=== PATIENT | female | born 1960 ===

== ENCOUNTER 2019-02-18 04:47 | Emergency (ER) | payer OTHER ==
[2019-02-18] MEDS ORDERED: OXYcodone/APAP 5/325MG TABLET PO ONE (05:30)
[2019-02-18] MEDS ORDERED: KETOROLAC 30 MG/1 ML ONE (06:00)
[2019-02-18] MEDS ORDERED: KETOROLAC 30 MG/1 ML IM ONE (06:00)
[2019-02-18 06:07] LABS: MICROSCOPIC NOT IND
[2019-02-18 06:11] LABS: CULTURE INDICATED? NO
--- NOTE | 2019-02-18 06:54 | NUR ---
Report received assumed patient care. Patient resting in bed watching tv reports pain improved and is 2/10. NAD noted. Lab at bedside.
[2019-02-18 07:06] LABS: BASOPHILS # (AUTO) 0.09 x10^3/uL (0-0.1); BASOPHILS % (AUTO) 1 % (0-1); EOSINOPHILS # (AUTO) 0.37 x10^3/uL (0-0.4); EOSINOPHILS % (AUTO) 4 % (1-7); LYMPHOCYTES # (AUTO) 2.32 x10^3/uL (1-3.4); LYMPHOCYTES % (AUTO) 25 % (22-44); MD NO; MEAN CORPUSCULAR HEMOGLOBIN 30.4 pg (27.0-34.8); MEAN CORPUSCULAR VOLUME 92.1 fL (80-100); MEAN PLATELET VOLUME 7.8 fL (7.4-10.4); MONOCYTES # (AUTO) 0.64 x10^3/uL (0.2-0.8); MONOCYTES % (AUTO) 7 % (2-9); NEUTROPHILS % (AUTO) 64 % (42-75); PLATELET COUNT 199 x10^3/uL (130-400); RED BLOOD COUNT 5.18 x10^6/uL (3.82-5.3); RED CELL DISTRIBUTION WIDTH 15.3 % (9.6-15.2)
[2019-02-18 07:17] LABS: ALANINE AMINOTRANSFERASE 28 U/L (12-78); ANION GAP 7 mmol/L (5-15); CALCIUM 8.5 mg/dL (8.5-10.1); CHLORIDE 107 mmol/L (98-107); CREATININE 0.71 mg/dL (0.55-1.02)
[2019-02-18 07:19] LABS: ALKALINE PHOSPHATASE 161 U/L (45-117); BILIRUBIN,TOTAL 0.7 mg/dL (0.2-1.0); TOTAL PROTEIN 7.1 g/dL (6.4-8.2)
[2019-02-18 08:00] VITALS: BP 143/81
--- NOTE | 2019-02-18 08:02 | NUR ---
Patient discharged home with steady gait. Discharge instructions provided all questions and concerns addressed. Patient educated on use of medication for pain control. All belonging left with patient.
== END 2019-02-18 08:14 | disposition home or self-care (01) ==
LOC: ED 06:41
DX: M19.031 Primary osteoarthritis, right wrist (principal); M06.831 Other specified rheumatoid arthritis, right wrist; R05 Cough; R10.9 Unspecified abdominal pain; R35.0 Frequency of micturition
CPT/HCPCS: 36415; 71046; 80053; 81003; 85025; 96372; 99284; J1885

== ENCOUNTER 2019-05-31 17:51 | Inpatient (IN) | payer OTHER ==
[~2019-05-31] VITALS: Ht 154.9 cm; Wt 80.6 kg
[2019-05-31] MEDS ORDERED: SODIUM CHLORIDE 0.9% 1,000ML IVBOLUS ONE (18:30)
--- NOTE | 2019-05-31 18:33 | NUR ---
PT TRANSPORTED ON GURNEY TO IMAGING.
[2019-05-31 18:39] LABS: BASOPHILS % (AUTO) 0 % (0-1); EOSINOPHILS # (AUTO) 0.12 x10^3/uL (0-0.4); EOSINOPHILS % (AUTO) 1 % (1-7); LYMPHOCYTES # (AUTO) 1.63 x10^3/uL (1-3.4); LYMPHOCYTES % (AUTO) 15 % (22-44); MD NO; MEAN CORPUSCULAR HEMOGLOBIN 29.9 pg (27.0-34.8); MEAN CORPUSCULAR HGB CONC 32.7 g/dL (32.4-35.8); MEAN CORPUSCULAR VOLUME 91.5 fL (80-100); MEAN PLATELET VOLUME 8.8 fL (7.4-10.4); MONOCYTES # (AUTO) 0.89 x10^3/uL (0.2-0.8); MONOCYTES % (AUTO) 8 % (2-9); NEUTROPHILS # (AUTO) 7.93 x10^3/uL (1.8-6.8); NEUTROPHILS % (AUTO) 75 % (42-75); PLATELET COUNT 159 x10^3/uL (130-400); RED BLOOD COUNT 5.54 x10^6/uL (3.82-5.3); RED CELL DISTRIBUTION WIDTH 14.7 % (9.6-15.2)
[2019-05-31 18:48] LABS: ALBUMIN 2.7 g/dL (3.4-5.0); ANION GAP 10 mmol/L (5-15); CALCIUM 8.1 mg/dL (8.5-10.1); CHLORIDE 102 mmol/L (98-107); CREATININE 1.02 mg/dL (0.55-1.02)
--- NOTE | 2019-05-31 18:57 | NUR ---
TASK RN: FIRST CONTACT WITH PT. PT RETURNED BACK TO ROOM FROM IMAGING. 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 ATTEMPTED TO ESTABLISH PIV, 2 ATTEMPTS WITHOUT SUCCESS. PT TOLERATED ATTEMPTS WITHOUT COMPLICATIONS. PT HAS 2 BEDRAILS UP FOR SAFETY AND CALL LIGHT WITHIN REACH. PROVIDED BEDSIDE REPORT TO MEAGAN MEHTA. ALL QUESTIONS ANSWERED. NO NEEDS REQUESTED. MEAGAN MEHTA TO ASSUME CARE OF PT AT THIS TIME.
[2019-05-31] MEDS ORDERED: ALBUTEROL/IPRATROPIUM 2.5MG/0.5MG, 3 ML NPPB ONE (19:30)
[2019-05-31] MEDS ORDERED: IBUPROFEN 600 MG TABLET PO ONE (19:30)
[2019-05-31] MEDS ORDERED: IBUPROFEN 600 MG TABLET ONE (19:44)
[2019-05-31 19:50] LABS: RAPID INFLUENZA A POSITIVE (Negative); RAPID INFLUENZA B Negative (Negative)
[2019-05-31] MEDS ORDERED: ALBUTEROL/IPRATROPIUM 2.5MG/0.5MG, 3 ML ONE (19:59)
[2019-05-31] MEDS ORDERED: SODIUM CHLORIDE 0.9% 1,000 ML IV ONE (22:10)
[2019-05-31] MEDS ORDERED: TEMAZEPAM 15 MG CAPSULE PO PRN (22:30)
[2019-05-31] MEDS ORDERED: DOCUSATE 100 MG CAPSULE PO PRN (22:30)
[2019-05-31] MEDS ORDERED: SODIUM CHLORIDE FLUSH 10ML SYR IVF PRN (22:30)
[2019-05-31] MEDS ORDERED: ONDANSETRON 2MG/ML, 2ML IVPush PRN (22:30)
[2019-05-31] MEDS ORDERED: LIDODERM 5% PATCH TD PRN (22:30)
[2019-05-31] MEDS ORDERED: LOSA100T14 PO (23:33)
[2019-05-31] MEDS ORDERED: PRED10TA PO (23:33)
[2019-05-31] MEDS ORDERED: OXYB10TA26 PO (23:33)
[2019-05-31] MEDS ORDERED: HYDR12.517 PO (23:35)
[2019-06-01 01:00] VITALS: BP 92/61
[2019-06-01] MEDS ORDERED: SODIUM CHLORIDE 0.9% 1,000ML IVBOLUS ONE (01:00)
[2019-06-01] MEDS: NICOTINE 14MG/24 HR PATCH.TD24 TD SCH ×2 (01:15→22:58)
[2019-06-01] MEDS: ENOXAPARIN 40 MG/0.4 ML SQ SCH ×2 (01:15→22:58)
[2019-06-01] MEDS: OSELTAMIVIR 75 MG CAPSULE PO SCH ×3 (01:15→20:44)
[2019-06-01 03:41] VITALS: BP 124/79
[2019-06-01 06:54] LABS: BASOPHILS # (AUTO) 0.03 x10^3/uL (0-0.1); BASOPHILS % (AUTO) 0 % (0-1); EOSINOPHILS # (AUTO) 0.16 x10^3/uL (0-0.4); EOSINOPHILS % (AUTO) 2 % (1-7); LYMPHOCYTES # (AUTO) 1.93 x10^3/uL (1-3.4); LYMPHOCYTES % (AUTO) 23 % (22-44); MD NO; MEAN CORPUSCULAR HEMOGLOBIN 29.8 pg (27.0-34.8); MEAN CORPUSCULAR HGB CONC 32.6 g/dL (32.4-35.8); MEAN CORPUSCULAR VOLUME 91.4 fL (80-100); MEAN PLATELET VOLUME 8.9 fL (7.4-10.4); MONOCYTES # (AUTO) 0.65 x10^3/uL (0.2-0.8); MONOCYTES % (AUTO) 8 % (2-9); NEUTROPHILS # (AUTO) 5.61 x10^3/uL (1.8-6.8); NEUTROPHILS % (AUTO) 67 % (42-75); PLATELET COUNT 151 x10^3/uL (130-400); RED BLOOD COUNT 4.87 x10^6/uL (3.82-5.3); RED CELL DISTRIBUTION WIDTH 15.2 % (9.6-15.2)
[2019-06-01 07:04] LABS: ANION GAP 8 mmol/L (5-15); CALCIUM 7.5 mg/dL (8.5-10.1); CHLORIDE 109 mmol/L (98-107); CREATININE 0.86 mg/dL (0.55-1.02)
[2019-06-01 07:36] VITALS: BP 120/77
[2019-06-01] MEDS ORDERED: POTASSIUM CHLORIDE 20 MEQ TAB.ER.PRT PO ONE (08:00)
[2019-06-01 14:30] VITALS: BP 109/72
[2019-06-01] MEDS: BENZONATATE 100 MG CAPSULE PO PRN ×2 (15:36→20:44)
[2019-06-01 20:35] VITALS: BP 108/73
[2019-06-01] MEDS: IBUPROFEN 600 MG TABLET PO PRN (20:49)
[2019-06-02 00:55] VITALS: BP 120/82
[2019-06-02 08:00] VITALS: BP 115/78
[2019-06-02] MEDS: OSELTAMIVIR 75 MG CAPSULE PO SCH ×2 (09:31→20:18)
[2019-06-02] MEDS ORDERED: POTASSIUM CHLORIDE 40 MEQ in SODIUM CHLORIDE 0.9% 500 ML IV ONE (12:00)
[2019-06-02 14:30] VITALS: BP 92/60
[2019-06-02] MEDS: BENZONATATE 100 MG CAPSULE PO PRN (20:18)
[2019-06-02 20:20] VITALS: BP 93/64
[2019-06-02] MEDS ORDERED: POTASSIUM CHLORIDE 20 MEQ TAB.ER.PRT PO ONE (21:00)
[2019-06-02] MEDS: NICOTINE 14MG/24 HR PATCH.TD24 TD SCH (23:29)
[2019-06-02] MEDS: ENOXAPARIN 40 MG/0.4 ML SQ SCH (23:29)
[2019-06-02 23:32] VITALS: BP 124/76
[2019-06-02] MEDS: IBUPROFEN 600 MG TABLET PO PRN (23:39)
[2019-06-03 02:26] VITALS: BP 109/68
[2019-06-03 07:22] LABS: ANION GAP 5 mmol/L (5-15); CALCIUM 7.8 mg/dL (8.5-10.1); CHLORIDE 109 mmol/L (98-107); CREATININE 0.53 mg/dL (0.55-1.02)
[2019-06-03 07:26] LABS: BASOPHILS # (AUTO) 0.01 x10^3/uL (0-0.1); BASOPHILS % (AUTO) 0 % (0-1); EOSINOPHILS # (AUTO) 0.39 x10^3/uL (0-0.4); EOSINOPHILS % (AUTO) 6 % (1-7); LYMPHOCYTES # (AUTO) 1.99 x10^3/uL (1-3.4); LYMPHOCYTES % (AUTO) 28 % (22-44); MD NO; MEAN CORPUSCULAR HGB CONC 32.7 g/dL (32.4-35.8); MEAN CORPUSCULAR VOLUME 91.6 fL (80-100); MEAN PLATELET VOLUME 8.8 fL (7.4-10.4); MONOCYTES # (AUTO) 0.55 x10^3/uL (0.2-0.8); MONOCYTES % (AUTO) 8 % (2-9); NEUTROPHILS # (AUTO) 4.22 x10^3/uL (1.8-6.8); NEUTROPHILS % (AUTO) 59 % (42-75); PLATELET COUNT 142 x10^3/uL (130-400); RED BLOOD COUNT 4.82 x10^6/uL (3.82-5.3); RED CELL DISTRIBUTION WIDTH 15.1 % (9.6-15.2)
[2019-06-03 08:57] VITALS: BP 125/88
[2019-06-03] MEDS: OSELTAMIVIR 75 MG CAPSULE PO SCH (09:01)
[2019-06-03] MEDS ORDERED: FLU VACC QS2019-20 36MOS UP/PF 0.5 ML IM-VACC ONE (12:00)
[2019-06-03] MEDS ORDERED: OSEL75CA14 PO (13:05)
== END 2019-06-03 15:23 | disposition home or self-care (01) | DRG 193 ==
LOC: ED 22:20 → EDIP 22:21 → 4WST 06-01 00:41
PROVIDERS: ATTEND Hospitalist
DX: J10.1 Influenza due to other identified influenza virus with other respiratory manifestations (principal); J96.01 Acute respiratory failure with hypoxia; I10 Essential (primary) hypertension; F17.210 Nicotine dependence, cigarettes, uncomplicated; E87.6 Hypokalemia; M06.9 Rheumatoid arthritis, unspecified; R73.9 Hyperglycemia, unspecified; D72.829 Elevated white blood cell count, unspecified; Z80.0 Family history of malignant neoplasm of digestive organs; Z82.49 Family history of ischemic heart disease and other diseases of the circulatory system; Z83.3 Family history of diabetes mellitus
CPT/HCPCS: 36415; 71046; 80048; 82040; 83605; 84145; 85025; 87040; 87400; 90686; 93005; 94640; 99285; G0378; J1650; J3480; J7030; J7040

== ENCOUNTER 2019-06-04 03:50 | Emergency (ER) | payer OTHER ==
[~2019-06-04] VITALS: Ht 167.6 cm; Wt 95.5 kg
[~2019-06-04 03:50] MED LIST: HYDR12.517 PO; LOSA100T14 PO; OSEL75CA14 PO; OXYB10TA26 PO; PRED10TA PO
[2019-06-04 04:29] LABS: MICROSCOPIC NOT IND
[2019-06-04 04:30] VITALS: BP 146/93
[2019-06-04 04:34] LABS: CULTURE INDICATED? NO
[2019-06-04 04:42] LABS: BASOPHILS # (AUTO) 0.01 x10^3/uL (0-0.1); BASOPHILS % (AUTO) 0 % (0-1); EOSINOPHILS # (AUTO) 0.38 x10^3/uL (0-0.4); EOSINOPHILS % (AUTO) 5 % (1-7); LYMPHOCYTES % (AUTO) 24 % (22-44); MD NO; MEAN CORPUSCULAR HEMOGLOBIN 29.7 pg (27.0-34.8); MEAN CORPUSCULAR HGB CONC 33.1 g/dL (32.4-35.8); MEAN CORPUSCULAR VOLUME 89.7 fL (80-100); MEAN PLATELET VOLUME 8.5 fL (7.4-10.4); MONOCYTES # (AUTO) 0.44 x10^3/uL (0.2-0.8); MONOCYTES % (AUTO) 5 % (2-9); NEUTROPHILS # (AUTO) 5.46 x10^3/uL (1.8-6.8); NEUTROPHILS % (AUTO) 66 % (42-75); PLATELET COUNT 149 x10^3/uL (130-400); RED CELL DISTRIBUTION WIDTH 14.9 % (9.6-15.2)
[2019-06-04 04:56] LABS: ALBUMIN 2.3 g/dL (3.4-5.0); ANION GAP 6 mmol/L (5-15); CALCIUM 7.9 mg/dL (8.5-10.1); CHLORIDE 105 mmol/L (98-107)
[2019-06-04 05:02] LABS: ALANINE AMINOTRANSFERASE 18 U/L (12-78); ALKALINE PHOSPHATASE 92 U/L (45-117); BILIRUBIN,TOTAL 0.8 mg/dL (0.2-1.0); CREATININE 0.58 mg/dL (0.55-1.02); TOTAL PROTEIN 6.6 g/dL (6.4-8.2); TROPONIN I < 0.015 ng/mL (0.000-0.045)
== END 2019-06-04 05:40 | disposition home or self-care (01) ==
LOC: ED 05:10
DX: S39.011A Strain of muscle, fascia and tendon of abdomen, initial encounter (principal); R10.84 Generalized abdominal pain; R07.89 Other chest pain; R05 Cough; M06.9 Rheumatoid arthritis, unspecified; X58.XXXA Exposure to other specified factors, initial encounter; Y93.89 Activity, other specified; Y92.89 Other specified places as the place of occurrence of the external cause; Y99.8 Other external cause status
CPT/HCPCS: 36415; 71045; 80053; 81003; 83690; 84484; 85025; 93005; 99285

== ENCOUNTER → 2019-10-22 | Outpatient (CLI) | payer OTHER | END | disposition home or self-care (01) | LOC: CVU 07:15 | PROVIDERS: ATTEND Internal Medicine | DX: I36.1 Nonrheumatic tricuspid (valve) insufficiency (principal); I11.9 Hypertensive heart disease without heart failure; J92.9 Pleural plaque without asbestos; J84.9 Interstitial pulmonary disease, unspecified; R59.0 Localized enlarged lymph nodes; J47.9 Bronchiectasis, uncomplicated | CPT/HCPCS: 71250; 93306; 93356 ==

== ENCOUNTER 2019-12-16 11:42 | Day surgery (SDC) | payer OTHER ==
[~2019-12-16] VITALS: Ht 154.9 cm; Wt 86.4 kg
[2019-12-16] MEDS ORDERED: DIPHENHYDRAMINE 50 MG/ML, 1ML IVPush ONE (12:30)
[2019-12-16] MEDS ORDERED: DIPHENHYDRAMINE 50 MG/ML, 1ML ONE (12:49)
[2019-12-16] MEDS ORDERED: PANT40TA3 PO (12:56)
[2019-12-16] MEDS ORDERED: TIOT18CA INH (12:56)
[2019-12-16] MEDS ORDERED: BUME1TAB21 PO (12:56)
[2019-12-16] MEDS ORDERED: BUDE10.2 INH (12:56)
[2019-12-16] MEDS ORDERED: CYCL1DRO EACHEYE (12:56)
[2019-12-16] MEDS ORDERED: NICO1PAT31 TD (12:56)
[2019-12-16] MEDS ORDERED: ALBU8.5H8 INH (12:56)
[2019-12-16 12:59] VITALS: BP 151/91
[2019-12-16] MEDS ORDERED: FENTANYL PF 100 MCG/2ML ONE (13:55)
[2019-12-16] MEDS ORDERED: MIDAZOLAM 1 MG/ML, 2ML ONE (13:55)
== END 2019-12-16 16:00 | disposition home or self-care (01) ==
LOC: CACL 11:42
PROVIDERS: ATTEND Internal Medicine Cardiovascular Disease
DX: R06.02 Shortness of breath (principal); I27.21 Secondary pulmonary arterial hypertension; J84.10 Pulmonary fibrosis, unspecified; M06.9 Rheumatoid arthritis, unspecified; J44.9 Chronic obstructive pulmonary disease, unspecified; I10 Essential (primary) hypertension; F17.210 Nicotine dependence, cigarettes, uncomplicated; F12.10 Cannabis abuse, uncomplicated; E66.3 Overweight; Z68.35 Body mass index [BMI] 35.0-35.9, adult; Z79.899 Other long term (current) drug therapy; Z88.0 Allergy status to penicillin; Z91.013 Allergy to seafood; Z83.3 Family history of diabetes mellitus; Z82.49 Family history of ischemic heart disease and other diseases of the circulatory system
CPT/HCPCS: 93451; 99156; C1894; J1200; J2250; J3010

== ENCOUNTER 2020-01-26 22:33 | Emergency (ER) | payer OTHER ==
[~2020-01-26] VITALS: Ht 154.9 cm; Wt 88.1 kg
[~2020-01-26 22:33] MED LIST changes: +ALBU8.5H8 INH; +BUDE10.2 INH; +BUME1TAB21 PO; +CYCL1DRO EACHEYE; +NICO1PAT31 TD; +PANT40TA3 PO; +TIOT18CA INH
[2020-01-26 22:38] VITALS: BP 149/98
[2020-01-26] MEDS ORDERED: FAMOTIDINE 20 MG TABLET PO ONE (23:00)
[2020-01-26] MEDS ORDERED: FAMOTIDINE 20 MG TABLET ONE (23:07)
--- NOTE | 2020-01-26 23:46 | NUR ---
PT STATED 4 DAYS AGO SHE GOT A NEW BODY WASH AND THAT IS WHEN RASH STARTED
== END 2020-01-27 00:08 | disposition home or self-care (01) ==
LOC: ED 01-27 00:02
DX: L50.9 Urticaria, unspecified (principal); J44.9 Chronic obstructive pulmonary disease, unspecified; M19.90 Unspecified osteoarthritis, unspecified site; Z88.0 Allergy status to penicillin
CPT/HCPCS: 99283; J7512

== ENCOUNTER → 2020-01-31 | Outpatient (CLI) | payer OTHER | END | disposition home or self-care (01) | LOC: CFH 07:56 | PROVIDERS: ATTEND Internal Medicine | DX: M81.0 Age-related osteoporosis without current pathological fracture (principal) | CPT/HCPCS: 77080 ==

== ENCOUNTER 2020-02-13 02:59 | Emergency (ER) | payer OTHER ==
[~2020-02-13] VITALS: Ht 154.9 cm; Wt 88.0 kg
--- NOTE | 2020-02-13 03:19 | NUR ---
DR TORRES AT BEDSIDE FOR ASSESSMENT
[2020-02-13] MEDS ORDERED: ALBUTEROL/IPRATROPIUM 2.5MG/0.5MG, 3 ML ONE (03:30)
[2020-02-13] MEDS ORDERED: ALBUTEROL/IPRATROPIUM 2.5MG/0.5MG, 3 ML NPPB ONE (03:30)
--- NOTE | 2020-02-13 03:37 | NUR ---
SUSIE TX GOING AT THIS TIME, PT MEDICATED PER MAR. COVID SWAB COMPLETE AND WALKED TO LAB
[2020-02-13 03:56] LABS: BASOPHILS % (AUTO) 1 % (0-1); EOSINOPHILS % (AUTO) 2 % (1-7); LYMPHOCYTES % (AUTO) 28 % (22-44); MEAN CORPUSCULAR HEMOGLOBIN 32.2 pg (27.0-34.8); MEAN CORPUSCULAR HGB CONC 33.8 g/dL (32.4-35.8); MEAN PLATELET VOLUME 8.5 fL (7.4-10.4); MONOCYTES % (AUTO) 13 % (2-9); NEUTROPHILS % (AUTO) 56 % (42-75); PLATELET COUNT 164 x10^3/uL (130-400); RED CELL DISTRIBUTION WIDTH 14.4 % (9.6-15.2)
[2020-02-13 04:03] LABS: MD NO
[2020-02-13 04:05] LABS: ALANINE AMINOTRANSFERASE 35 U/L (12-78); ALBUMIN 2.9 g/dL (3.4-5.0); CALCIUM 8.6 mg/dL (8.5-10.1); CREATININE 0.76 mg/dL (0.55-1.02)
[2020-02-13 04:09] LABS: ALKALINE PHOSPHATASE 149 U/L (45-117); BILIRUBIN,TOTAL 0.5 mg/dL (0.2-1.0); TOTAL PROTEIN 6.8 g/dL (6.4-8.2); TROPONIN I < 0.015 ng/mL (0.000-0.045)
[2020-02-13 04:19] LABS: ANION GAP 5 mmol/L (5-15); CHLORIDE 109 mmol/L (98-107)
--- NOTE | 2020-02-13 04:24 | NUR ---
PT RESTING ON RAMIRO BARRERA, STS SHE FEELS A BIT BETTER, XRAY AT BEDSIDE
[2020-02-13 05:00] VITALS: BP 146/83
== END 2020-02-13 05:11 | disposition home or self-care (01) ==
LOC: ED 04:12
DX: J44.1 Chronic obstructive pulmonary disease with (acute) exacerbation (principal); Z20.828 Contact with and (suspected) exposure to other viral communicable diseases; R94.31 Abnormal electrocardiogram [ECG] [EKG]; M06.9 Rheumatoid arthritis, unspecified; F17.200 Nicotine dependence, unspecified, uncomplicated
CPT/HCPCS: 71045; 80053; 83880; 84484; 85025; 87635; 93005; 94640; 99285; J7512

== ENCOUNTER 2020-09-29 13:27 | Outpatient (CLI) | payer OTHER | END 2020-09-29 23:59 | disposition home or self-care (01) | LOC: CFH 13:27 | PROVIDERS: ATTEND Nurse Practitioner Family | DX: Z12.31 Encounter for screening mammogram for malignant neoplasm of breast (principal) | CPT/HCPCS: 77063; 77067 ==

== ENCOUNTER 2020-10-19 08:15 | Observation (INO) | payer OTHER ==
[~2020-10-19] VITALS: Ht 154.9 cm; Wt 96.0 kg
[2020-10-19] MEDS ORDERED: GLUCAGON 1 MG ONE ×2 (08:49→08:51)
[2020-10-19] MEDS ORDERED: SODIUM CHLORIDE 0.9% 1,000ML IVBOLUS ONE ×2 (09:00→10:00)
[2020-10-19] MEDS ORDERED: SODIUM CHLORIDE FLUSH 10ML SYR IVF ONE (09:00)
[2020-10-19] MEDS ORDERED: GLUCAGON 1 MG IVPush ONE ×2 (09:00→10:00)
[2020-10-19] MEDS ORDERED: ONDANSETRON 2MG/ML, 2ML IVPush ONE (09:00)
--- NOTE | 2020-10-19 09:02 | NUR ---
PT TOOK EXTRA DOSE OF COREG AT 430 AM ON ACCIDENT. PT FEELS DIZZY AND WEAK. PT HYPOTENSIVE, DENIES CP. A&OX4. NO DISTRESS NOTED. IV ESTABLISHED. MEDICATED PER ORDER, CARD MONITOR IN PLACE. CALL LIGHT IN REACH. FAMILY AT BEDSIDE.
[2020-10-19 09:07] LABS: BASOPHILS % (AUTO) 1 % (0-1); EOSINOPHILS % (AUTO) 3 % (1-7); LYMPHOCYTES % (AUTO) 31 % (22-44); MEAN CORPUSCULAR HEMOGLOBIN 31.6 pg (27.0-34.8); MEAN PLATELET VOLUME 8.8 fL (7.4-10.4); MONOCYTES % (AUTO) 11 % (2-9); NEUTROPHILS % (AUTO) 55 % (42-75); PLATELET COUNT 170 x10^3/uL (130-400); RED BLOOD COUNT 4.85 x10^6/uL (3.82-5.3); RED CELL DISTRIBUTION WIDTH 14.2 % (9.6-15.2)
[2020-10-19 09:29] LABS: ALBUMIN 3.1 g/dL (3.4-5.0); CALCIUM 8.9 mg/dL (8.5-10.1); CREATININE 0.95 mg/dL (0.55-1.02)
--- NOTE | 2020-10-19 09:50 | NUR ---
DISCUSSED W , BP LOW 82/50. ORDERED 5MG GLUCAGEN, 2ND BOLUS
--- NOTE | 2020-10-19 10:13 | NUR ---
ASSISTED TO BSC. PT FELT DIZZY. VOIDED
[2020-10-19 10:15] LABS: ANION GAP 5 mmol/L (5-15); CHLORIDE 104 mmol/L (98-107)
--- NOTE | 2020-10-19 10:19 | NUR ---
MEDICATED PER ORDERS, SECOND NS BOLUS INFUSING. PT IN [place]
--- NOTE | 2020-10-19 10:30 | NUR ---
REPORT FROM Mani RHODES. ANNA CONRAD AT BEDSIDE TO DISCUSS POC
[2020-10-19] MEDS ORDERED: CARV25TA12 PO (10:35)
--- NOTE | 2020-10-19 10:38 | NUR ---
PER ANNA CONRAD HOLD LEVO FOR NOW, TRY PO MEDS FIRST.
[2020-10-19] MEDS ORDERED: NOREPINEPHRINE 8 MG in SODIUM CHLORIDE 0.9% 242 ML IV PRN (11:00)
[2020-10-19] MEDS ORDERED: MIDODRINE 5 MG TABLET PO ONE (11:00)
--- NOTE | 2020-10-19 11:27 | NUR ---
PT RESTING IN BED, CALL LIGHT IN REACH. NO COMPLAINTS AT THIS TIME.
--- NOTE | 2020-10-19 12:18 | NUR ---
PT RESTING IN BED, CALL LIGHT IN REACH. NO COMPLAINTS AT THIS TIME.
--- NOTE | 2020-10-19 12:51 | NUR ---
Report to Kdoy dukes
--- NOTE | 2020-10-19 12:52 | NUR ---
REPORT FROM NGOC RHODES
--- NOTE | 2020-10-19 13:53 | NUR ---
PATIENT'S PHARMACY CALLED TO CLARIFY IF BB SUSTAINED RELEASE. IT IS NOT. POC REVIEWED WITH ERP PATIENT STILL MILDLY BRADYCARDIC/HYPOTENSIVE DESPITE MIDODRINE ERP TO BEDSIDE PLAN TO ADMIT TO ALLOW FOR FURTHER METABOLIZATION. PATIENT AGREEABLE PATIENT HOB EEVATED FOR -10 TO +10 AND PATIENT DIZZY 62, 90/47
[2020-10-19] MEDS ORDERED: SODIUM CHLORIDE FLUSH 10ML SYR IVF PRN (14:00)
[2020-10-19] MEDS ORDERED: SODIUM CHLORIDE 0.9% 1,000 ML IV ONE (14:00)
[2020-10-19] MEDS ORDERED: GUAIFENESIN/DM 200-20MG, 10ML UDC PO PRN (15:00)
[2020-10-19] MEDS ORDERED: ACETAMINOPHEN 325 MG TABLET PO PRN (15:00)
[2020-10-19] MEDS ORDERED: MELATONIN 5 MG TABLET PO PRN (15:00)
[2020-10-19] MEDS ORDERED: ONDANSETRON 2MG/ML, 2ML IVPush PRN (15:00)
[2020-10-19] MEDS ORDERED: ONDANSETRON ODT 4 MG PO PRN (15:00)
[2020-10-19 15:19] VITALS: BP 99/67
[2020-10-19 19:40] VITALS: BP 100/64
[2020-10-20 01:06] VITALS: BP 118/80
[2020-10-20 06:58] VITALS: BP 122/80
[2020-10-20] MEDS ORDERED: SENNA/DOCUSATE TABLET PO SCH (09:00)
== END 2020-10-20 11:59 | disposition home or self-care (01) ==
LOC: ED 09:19 → INTOOBSV 13:57 → EDIP 13:57 → 4EST 15:10
PROVIDERS: ADMIT Hospitalist; ATTEND Hospitalist
DX: I95.0 Idiopathic hypotension (principal); T44.7X1A Poisoning by beta-adrenoreceptor antagonists, accidental (unintentional), initial encounter; E66.9 Obesity, unspecified; N32.81 Overactive bladder; I10 Essential (primary) hypertension; M06.9 Rheumatoid arthritis, unspecified; J44.9 Chronic obstructive pulmonary disease, unspecified; F12.90 Cannabis use, unspecified, uncomplicated; F17.200 Nicotine dependence, unspecified, uncomplicated; Z88.0 Allergy status to penicillin; Z79.899 Other long term (current) drug therapy
CPT/HCPCS: 36415; 80048; 82040; 85025; 93005; 96361; 96374; 96376; 99284; G0378; J1610; J7030

== ENCOUNTER 2020-11-06 17:56 | Emergency (ER) | payer OTHER ==
[~2020-11-06] VITALS: Ht 154.9 cm; Wt 85.0 kg
[~2020-11-06 17:56] MED LIST changes: +CARV25TA12 PO
[2020-11-06 18:50] LABS: BASOPHILS % (AUTO) 1 % (0-1); EOSINOPHILS % (AUTO) 6 % (1-7); LYMPHOCYTES % (AUTO) 31 % (22-44); MEAN CORPUSCULAR HGB CONC 33.1 g/dL (32.4-35.8); MEAN PLATELET VOLUME 8.6 fL (7.4-10.4); MONOCYTES % (AUTO) 12 % (2-9); NEUTROPHILS % (AUTO) 50 % (42-75); PLATELET COUNT 187 x10^3/uL (130-400); RED BLOOD COUNT 5.13 x10^6/uL (3.82-5.3); RED CELL DISTRIBUTION WIDTH 14.3 % (9.6-15.2)
[2020-11-06 19:02] LABS: ALANINE AMINOTRANSFERASE 23 U/L (12-78); ANION GAP 4 mmol/L (5-15); CALCIUM 10.2 mg/dL (8.5-10.1); CHLORIDE 105 mmol/L (98-107); CREATININE 1.02 mg/dL (0.55-1.02)
[2020-11-06 19:04] LABS: ALKALINE PHOSPHATASE 151 U/L (45-117); BILIRUBIN,TOTAL 0.3 mg/dL (0.2-1.0); TOTAL PROTEIN 7.9 g/dL (6.4-8.2)
--- NOTE | 2020-11-06 21:32 | NUR ---
ASSUMED CARE OF PATIENT. PATIENT REPORTS SHE HAS HAD SWELLING IN HER LEFT LEG/FOOT. VS STABLE. CALL LIGHT IN PLACE WILL CONTINUE TO MONITOR.
[2020-11-06 22:24] VITALS: BP 108/56
== END 2020-11-06 22:25 | disposition home or self-care (01) ==
LOC: ED 18:00
DX: L03.115 Cellulitis of right lower limb (principal); J44.9 Chronic obstructive pulmonary disease, unspecified; M06.9 Rheumatoid arthritis, unspecified
CPT/HCPCS: 36415; 80053; 85025; 99284